=== PATIENT | female | born 1960 | race African-American/Black ===

== ENCOUNTER 2024-01-01 16:19 | Emergency (ER) | payer OTHER ==
[~2024-01-01] VITALS: Ht 160 cm; Wt 91.0 kg
[2024-01-01 16:30] VITALS: O2SAT 95
[2024-01-01 17:28] LABS: CHLORIDE 104 mEq/L (98-107); POTASSIUM 3.7 mEq/L (3.5-5.1); SODIUM 140 mEq/L (136-145)
[2024-01-01 17:29] LABS: CALCIUM 9.6 mg/dL (8.7-10.4); CARBON DIOXIDE 32 mEq/L (21-32)
[2024-01-01 17:31] LABS: HEMATOCRIT. 42.7 % (36.0-48.0); HEMOGLOBIN. 13.8 g/dL (12.0-16.0); MEAN CORPUSCULAR HEMOGLOBIN 28.4 pg (28.0-32.0); MEAN CORPUSCULAR HGB CONC 32.4 g/dL (31.0-37.0); MEAN CORPUSCULAR VOLUME 87.8 fL (81.0-99.0); MEAN PLATELET VOLUME 10.1 fl (7.4-10.4); PLATELET 213 x1000/uL (130-400); RED BLOOD CELL COUNT 4.86 mill/uL (4.2-5.4); RED CELL DISTRIBUTION WIDTH 14.3 % (11.6-14.6); WHITE BLOOD COUNT 9.5 x1000/uL (4.5-11.0)
[2024-01-01 17:32] LABS: DIFFERENTIAL COMMENT 1
[2024-01-01 17:34] LABS: CREATININE 0.9 mg/dL (0.6-1.0); GLUCOSE 106 mg/dL (70-105); UREA NITROGEN BLOOD 14 mg/dL (9-23)
[2024-01-01 17:37] LABS: TROPONIN I HIGH SENSITIVITY 4 ng/L (3.0-34)
[2024-01-01 17:57] LABS: PLATELET ESTIMATE NORMAL
[2024-01-01] MEDS: ASPIRIN 81MG TABLET PO ONE (18:09)
[2024-01-01] MEDS: METHOCARBAMOL 500MG TABLET PO ONE (18:10)
[2024-01-01 18:19] LABS: CLARITY URINE CLEAR (CLEAR); COLOR URINE YELLOW (YELLOW); GLUCOSE URINE NEGATIVE (NEGATIVE); KETONES URINE NEGATIVE (NEGATIVE); LEUKOCYTE ESTERASE URINE TRACE (NEGATIVE); NITRITE URINE NEGATIVE (NEGATIVE); OCCULT BLOOD URINE NEGATIVE (NEGATIVE); PH URINE 7.5 (4.5-8.0); PROTEIN URINE NEGATIVE (NEGATIVE); SPECIFIC GRAVITY URINE 1.018 (1.005-1.030); UROBILINOGEN URINE 0.2 E.U./dL (0.2-1.0)
[2024-01-01 18:53] LABS: BACTERIA URINE 1+; RBC URINE 0-2 /hpf (0-2); SQUAMOUS EPITHELIAL CELL URINE 2+ /lpf (RARE/1+)
[2024-01-01] MEDS ORDERED: HYDRALAZINE 20MG/ML VIAL IV ONE (20:15)
[2024-01-01] MEDS ORDERED: MORPHINE SULFATE 4 MG/ML INJ (FOR IV/IM USE) IV ONE (20:15)
[2024-01-01] MEDS ORDERED: LABETALOL 5MG/ML 4ML INJ IV ONE (20:15)
[2024-01-01 20:45] LABS: D-DIMER 0.82 mg/L FEU (<0.50); PARTIAL THROMBOPLASTIN TIME 27.1 sec (23.4-31.0); PROTHROMBIN TIME 10.9 sec (9.6-11.0)
[2024-01-01 21:05] LABS: TROPONIN I HIGH SENSITIVITY 5 ng/L (3.0-34)
[2024-01-01] MEDS: MORPHINE SULFATE 4 MG/ML INJ (FOR IV/IM USE) IV NR (23:14)
[2024-01-01] MEDS: LABETALOL 5MG/ML 4ML INJ IV NR (23:14)
[2024-01-01] MEDS ORDERED: IOHEXOL-350 100 ML BOTTLE ONE (23:43)
[2024-01-01] MEDS: HYDRALAZINE 20MG/ML VIAL IV NR (23:44)
[2024-01-02] MEDS ORDERED: PANT40SU MT (01:39)
[2024-01-02] MEDS ORDERED: TRAM50TA3 MT (01:39)
[2024-01-02] MEDS ORDERED: TOPUD MT (01:39)
[2024-01-02] MEDS: HYDROCODONE/ACETAMINOPHEN 5/325MG TABLET PO ONE (01:48)
[2024-01-02 02:12] VITALS: BP 163/78; PULSE 71; RESP 13; TEMP 97.9
== END 2024-01-02 02:14 | disposition home or self-care (01) ==
LOC: ER 16:19
DX: R07.89 Other chest pain (principal)
CPT/HCPCS: 80048; 81003; 83880; 85025; 85379; 85610; 85730; 84484; 36415; 71045; 71275; 76705; 93005; 96374; 96375; 99285; Q9967; Z7610 ×2; J0360; J3490; J2270